=== PATIENT | female | born 1990 | race Caucasian/White ===

== ENCOUNTER 2020-11-12 20:30 | Emergency (ER) | payer OTHER ==
[~2020-11-12 20:30] MED LIST: ZOFRAN ODT 4 MG4 MG SL
== END 2020-11-12 21:40 | disposition left against medical advice (07) ==
LOC: ER1 20:30
DX: Z53.21 Procedure and treatment not carried out due to patient leaving prior to being seen by health care provider (principal)

== ENCOUNTER 2021-05-12 01:39 | Outpatient (CLI) | payer OTHER | END 2021-05-12 04:03 | disposition home or self-care (01) | LOC: GENOP 01:39 | PROVIDERS: Obstetrics & Gynecology | DX: O99.891 Other specified diseases and conditions complicating pregnancy (principal); R12 Heartburn | CPT/HCPCS: 80307; 81001; G0463 ==

== ENCOUNTER 2021-05-17 15:43 | Emergency (ER) | payer OTHER ==
[2021-05-17 20:01] LABS: BUN/CREATININE RATIO 15 (0-10)
[2021-05-17 20:11] LABS: HEMOGLOBIN 10.1 gm/dl (12.3-15.3); RED BLOOD COUNT 3.27 M/UL (4.00-5.10); WHITE BLOOD COUNT 5.2 K/UL (4.5-11.0)
[2021-05-17] MEDS ORDERED: AMOXICILLIN875 MG PO (22:32)
== END 2021-05-17 23:30 | disposition home or self-care (01) ==
LOC: ER1 15:43
PROVIDERS: Family Medicine
DX: Z23 Encounter for immunization (principal); U07.1 COVID-19; R35.0 Frequency of micturition; Z86.19 Personal history of other infectious and parasitic diseases
CPT/HCPCS: 71045; 80053; 81001; 83615; 85025; 85652; 86140; 87086; 99283; M0243; U0002

== ENCOUNTER 2021-08-05 05:52 | Inpatient (IN) | payer OTHER ==
[~2021-08-05 05:52] MED LIST changes: +AMOXICILLIN875 MG PO
[2021-08-05 06:27] LABS: HEMOGLOBIN 10.2 gm/dl (12.3-15.3); RED BLOOD COUNT 3.61 M/UL (4.00-5.10); WHITE BLOOD COUNT 7.2 K/UL (4.5-11.0)
[2021-08-05] MEDS ORDERED: IBUPROFEN800 MG PO (13:18)
[2021-08-05] MEDS ORDERED: DOCUSATE SODIU100 MG PO (13:18)
[2021-08-05] MEDS ORDERED: BUPRENORPHIN-N1 EACH SL (13:52)
[2021-08-07 07:12] LABS: RUBELLA ANTIBODIES, IGG 8.12 index (Immune >0.99)
[2021-08-07 17:08] LABS: TREPONEMA PALLIDUM ANTIBODIES Non Reactive (Non Reactive)
[2021-08-12 22:07] LABS: ALPRAZOLAM Positive (.); ALPRAZOLAM CONFIRM 124 ng/mL (Cutoff=100); AMPHETAMINE Positive (.); AMPHETAMINE GC/MS CONF 544 ng/mL (Cutoff=500); AMPHETAMINES Positive (Cutoff=1000); AMPHETAMINES, URINE See Final Results ng/mL (Cutoff=1000); BARBITURATE Negative ng/mL (Cutoff=200); BENZODIAZEPINES Positive ng/mL (Cutoff=100); BENZODIAZEPINES See Final Results ng/mL (Cutoff=200); CANNABINOIDS Negative ng/mL (Cutoff=20); CLONAZEPAM Negative (Cutoff=100); COCAINE (METABOLITE) Negative ng/mL (Cutoff=300); CREATININE 35.9 mg/dL (20.0-300.0); FLURAZEPAM Negative (Cutoff=100); LORAZEPAM Negative (Cutoff=100); MEPERIDINE Negative ng/mL (Cutoff=200); METHADONE Negative ng/mL (Cutoff=300); METHAMPHETAMINE Positive (.); METHAMPHETAMINE GC/MS CONF >3000 ng/mL (Cutoff=500); MIDAZOLAM Negative (Cutoff=100); NORDIAZEPAM Negative (Cutoff=100); OPIATES Negative ng/mL (Cutoff=300); OXAZEPAM Negative (Cutoff=100); PHENCYCLIDINE Negative ng/mL (Cutoff=25); PROPOXYPHENE Negative ng/mL (Cutoff=300); TEMAZEPAM Negative (Cutoff=100); TRIAZOLAM Negative (Cutoff=100)
== END 2021-08-06 13:16 | disposition home or self-care (01) | DRG 787 ==
LOC: GENOP 05:52 → OB 06:11
PROVIDERS: ADMIT Obstetrics & Gynecology
PROC: 4A1HXCZ Monitoring of Products of Conception, Cardiac Rate, External Approach (ICD-10-PCS; 2021-08-05)
PROC: 10D00Z1 Extraction of Products of Conception, Low, Open Approach (ICD-10-PCS; principal; 2021-08-05 06:35)
DX: O99.324 Drug use complicating childbirth (principal); O98.42 Viral hepatitis complicating childbirth; D62 Acute posthemorrhagic anemia; F11.90 Opioid use, unspecified, uncomplicated; O90.81 Anemia of the puerperium; F15.929 Other stimulant use, unspecified with intoxication, unspecified; Z3A.38 38 weeks gestation of pregnancy; Z37.0 Single live birth; B19.20 Unspecified viral hepatitis C without hepatic coma; Z20.822 Contact with and (suspected) exposure to COVID-19; O32.8XX0 Maternal care for other malpresentation of fetus, not applicable or unspecified; O99.344 Other mental disorders complicating childbirth; F41.9 Anxiety disorder, unspecified; O99.334 Smoking (tobacco) complicating childbirth; F17.210 Nicotine dependence, cigarettes, uncomplicated; Z91.040 Latex allergy status; Z98.818 Other dental procedure status
CPT/HCPCS: 36415; 36600; 80307; 82800; 85014; 85018; 85025; 85461; 86762; 86780; 86850; 86900; 86901; C9113; J0690; J1170; J1885; J2550; J2590; J2704; J2790; J3010; J7120

== ENCOUNTER 2021-08-31 18:02 | Emergency (ER) | payer OTHER ==
[~2021-08-31 18:02] MED LIST changes: +BUPRENORPHIN-N1 EACH SL; +DOCUSATE SODIU100 MG PO; +IBUPROFEN800 MG PO
[2021-08-31 19:50] LABS: HEMOGLOBIN 7.3 gm/dl (12.3-15.3); RED BLOOD COUNT 2.8 M/UL (4.00-5.10); WHITE BLOOD COUNT 8.1 K/UL (4.5-11.0)
[2021-08-31 20:01] LABS: BUN/CREATININE RATIO 12 (0-10)
== END 2021-09-01 05:20 | disposition home or self-care (01) ==
LOC: ER1 18:02
PROVIDERS: Physician Assistant
DX: M27.2 Inflammatory conditions of jaws (principal); K13.0 Diseases of lips; F17.210 Nicotine dependence, cigarettes, uncomplicated; R50.9 Fever, unspecified
CPT/HCPCS: 70487; 80053; 80307; 81001; 83605; 84703; 85025; 85652; 86140; 87040; 87086; 96372; 99284; J0561; Q9967

== ENCOUNTER 2021-09-12 00:53 | Emergency (ER) | payer OTHER ==
[2021-09-12 02:40] LABS: HEMOGLOBIN 7.8 gm/dl (12.3-15.3); RED BLOOD COUNT 3.25 M/UL (4.00-5.10)
[2021-09-12 03:02] LABS: BUN/CREATININE RATIO 15 (0-10)
[2021-09-12] MEDS ORDERED: FERROUS SULFAT325 MG PO (03:47)
== END 2021-09-12 03:51 | disposition left against medical advice (07) ==
LOC: ER1 00:53
PROVIDERS: Family Medicine
DX: D64.9 Anemia, unspecified (principal); F19.90 Other psychoactive substance use, unspecified, uncomplicated
CPT/HCPCS: 80053; 81001; 83690; 84703; 85025; 99284

== ENCOUNTER 2021-11-19 12:52 | Emergency (ER) | payer OTHER ==
[~2021-11-19 12:52] MED LIST changes: +FERROUS SULFAT325 MG PO
[2021-11-19] MEDS ORDERED: CLEOCIN HCL300 MG PO (13:53)
== END 2021-11-19 14:10 | disposition home or self-care (01) ==
LOC: ER1 12:52
DX: K04.7 Periapical abscess without sinus (principal); F17.200 Nicotine dependence, unspecified, uncomplicated
CPT/HCPCS: 99282

== ENCOUNTER 2021-12-15 02:10 | Emergency (ER) | payer OTHER ==
[~2021-12-15 02:10] MED LIST changes: +CLEOCIN HCL300 MG PO
[2021-12-15] MEDS ORDERED: IBUPROFEN600 MG PO (04:09)
[2021-12-15] MEDS ORDERED: CLINDAMYCIN HC150 MG PO (04:37)
== END 2021-12-15 04:46 | disposition home or self-care (01) ==
LOC: ER1 02:10
PROVIDERS: Physician Assistant
DX: K04.7 Periapical abscess without sinus (principal); F17.210 Nicotine dependence, cigarettes, uncomplicated
CPT/HCPCS: 41800; 80307; 81001; 84703; 87086; 99283

== ENCOUNTER 2021-12-28 05:47 | Emergency (ER) | payer OTHER ==
[~2021-12-28 05:47] MED LIST changes: +CLINDAMYCIN HC150 MG PO; +IBUPROFEN600 MG PO
== END 2021-12-28 06:14 | disposition left against medical advice (07) ==
LOC: ER1 05:47
DX: Z53.21 Procedure and treatment not carried out due to patient leaving prior to being seen by health care provider (principal)

== ENCOUNTER 2022-03-19 16:54 | Emergency (ER) | payer OTHER ==
[2022-03-19 18:22] LABS: HEMOGLOBIN 8.9 gm/dl (12.3-15.3); RED BLOOD COUNT 3.89 M/UL (4.00-5.10); WHITE BLOOD COUNT 3.5 K/UL (4.5-11.0)
[2022-03-19 18:39] LABS: BUN/CREATININE RATIO 11 (0-10)
[2022-03-19] MEDS ORDERED: ONDANSETRON ODT4 MG PO (19:39)
== END 2022-03-19 19:55 | disposition home or self-care (01) ==
LOC: ER1 16:54
PROVIDERS: Emergency Medicine
DX: R11.2 Nausea with vomiting, unspecified (principal); L23.7 Allergic contact dermatitis due to plants, except food; Z86.19 Personal history of other infectious and parasitic diseases; Z88.0 Allergy status to penicillin; F17.210 Nicotine dependence, cigarettes, uncomplicated
CPT/HCPCS: 80053; 81001; 84703; 85025; 96374; 96375; 99284; J1100; J2405

== ENCOUNTER 2022-03-21 07:46 | Emergency (ER) | payer OTHER ==
[~2022-03-21 07:46] MED LIST changes: +ONDANSETRON ODT4 MG PO
[2022-03-21 08:43] LABS: RED BLOOD COUNT 3.94 M/UL (4.00-5.10)
[2022-03-21 09:19] LABS: BUN/CREATININE RATIO 15 (0-10)
[2022-03-21] MEDS ORDERED: ZOFRAN 4 MG TAB4 MG PO (10:33)
== END 2022-03-21 10:42 | disposition home or self-care (01) ==
LOC: ER1 07:46
PROVIDERS: Physician Assistant Medical
DX: R11.2 Nausea with vomiting, unspecified (principal); I10 Essential (primary) hypertension; F17.210 Nicotine dependence, cigarettes, uncomplicated
CPT/HCPCS: 80053; 81001; 83690; 84703; 85025; 96374; 99284; J2405

== ENCOUNTER 2022-04-20 14:17 | Emergency (ER) | payer OTHER ==
[~2022-04-20 14:17] MED LIST changes: +ZOFRAN 4 MG TAB4 MG PO
[2022-04-20 15:19] LABS: HEMOGLOBIN 9.9 gm/dl (12.3-15.3); RED BLOOD COUNT 4.22 M/UL (4.00-5.10); WHITE BLOOD COUNT 14.1 K/UL (4.5-11.0)
[2022-04-20 15:48] LABS: BUN/CREATININE RATIO 11 (0-10)
[2022-04-20] MEDS ORDERED: KEFLEX CAP 250250 MG PO (17:12)
== END 2022-04-20 18:03 | disposition home or self-care (01) ==
LOC: ER1 14:17
PROVIDERS: Emergency Medicine
DX: N39.0 Urinary tract infection, site not specified (principal); Z86.19 Personal history of other infectious and parasitic diseases; Z20.822 Contact with and (suspected) exposure to COVID-19
CPT/HCPCS: 0240U; 71045; 80053; 81001; 83605; 84703; 85025; 87040; 87077; 87086; 87186; 96374; 99283; J0690